=== PATIENT | male | born 1985 | race Caucasian/White ===

== ENCOUNTER 2019-02-11 11:58 | Emergency (ER) | payer BC ==
[2019-02-11 12:55] VITALS: BP 150/100
--- NOTE | 2019-02-11 13:44 | UC ---
Headache HPI - HPI Summary HPI Summary: 33-year-old male comes in with a chief complaint of headache. Headache started 2 weeks ago sudden onset while climaxing during intercourse. Sudden onset primarily a left parietal region but it spread out through the whole head. He' s had a headache ever since then. Pain at its worse is a 10. Has been taking [id number] medications and now his headaches 4 out of 10. Headache it's worse with sexual activity at climax when it's at its worst. Also states he is worried he might pass out when the headache is at its worst. Denies any change in vision or speech or any focal weakness or numbness. He wakes up with the headache but is not sure if the headache wakes him from sleep. Other activity does not seem to make the headache any worse. Patient does have a history of hypertension. He stopped taking his hypertension medicine about 8 months ago. Also reports a history of migraine headaches when he was very young but he does not remember them because it was so long ago. There is a family history of migraines. Has had mild photophobia since the onset of this headache. - History Of Current Complaint Chief Complaint: UCHeadache Stated Complaint: HEADACHES x2 WEEKS Time Seen by Provider: 02/11/19 13:14 Pain Intensity: 4 - Allergies/Home Medications Allergies/Adverse Reactions: Allergies Allergy/AdvReac Type Severity Reaction Status Date / Time No Known Allergies Allergy Verified 02/11/19 13:06 Home Medications: Home Medications NK [No Home Medications Reported] 02/11/19 [History Confirmed 02/11/19] PMH/Surg Hx/FS Hx/Imm Hx Previously Healthy: Yes Cardiovascular History: Hypertension Neurological History: Migraine - Surgical History Surgical History: Yes Surgery Procedure, Year, and Place: vasectomy - Family History Family History: MIGRAINES - Social History Alcohol Use: Occasionally Substance Use Type: Marijuana Smoking Status (MU): Light Every Day Tobacco Smoker Type: Cigarettes Review of Systems All Other Systems Reviewed And Are Negative: Yes Constitutional: Positive: Negative Skin: Positive: Negative Eyes: Positive: Photophobia ENT: Positive: Negative Respiratory: Positive: Negative Cardiovascular: Positive: Negative Gastrointestinal: Positive: Negative Motor: Positive: Negative Neurovascular: Positive: Negative Musculoskeletal: Positive: Negative Neurological: Positive: Headache Psychological: Positive: Negative Is Patient Immunocompromised?: No Physical Exam Triage Information Reviewed: Yes Appearance: Well-Appearing, No Pain Distress, Well-Nourished Vital Signs: Initial Vital Signs Temp 98.3 F 02/11/19 12:44 Pulse 84 02/11/19 12:44 Resp 16 02/11/19 12:44 BP 150/100 02/11/19 12:44 Pulse Ox 99 02/11/19 12:44 Vital Signs Reviewed: Yes Eyes: Positive: Conjunctiva Clear, Other: - perrla/eomi, mild photophobia ENT: Positive: TMs normal Neck: Positive: Supple Respiratory: Positive: Lungs clear, Normal breath sounds, No respiratory distress Cardiovascular: Positive: RRR Musculoskeletal Exam: Normal Musculoskeletal: Positive: Strength Intact, ROM Intact Neurological Exam: Normal Neurological: Positive: Alert, Muscle Tone Normal Psychological Exam: Normal Psychological: Positive: Normal Response To Family, Age Appropriate Behavior Skin Exam: Normal Headache Course/Dx - Course Course Of Treatment: Patient Name: MACKENZIE CHOI Medical Record#: [id number] Ordering Physician: Samm Mccallum MD Acct.#: [id number] : 1985 Age: 33 Sex: M Location: [facility] Exam Date: 02/11/19 1326 ADM Status: REG ER Order Information: CT BRAIN WO Accession Number: [id number] CPT: 73582 Indication: Parietal headache. CT of the brain performed without IV contrast. Intratesticular structures are midline. No midline shift is noted. The extra- axial spaces are unremarkable. There is no evidence of intracranial mass or hemorrhage. No other high or low density lesions identified. Mastoid air cells and paranasal sinuses are unremarkable. IMPRESSION: No intracranial mass or hemorrhage is noted. <Electronically signed by Payton Arora MD in OV> 02/11/[address] results with the patient and his . I discussed the case with neurologist on-call Dr. Caba. CT scan did not show any acute bleed or abnormality. However do to the headache being there for 2 weeks the sensitivity for subarachnoid hemorrhage hemorrhage is low and Dr. Caba recommends an MRI. I discussed this with the patient and his . He plans to go to the [facility] emergency department for further evaluation. I spoke to the physician academic assistant Alejandra at the [facility] emergency department explained the case. - Differential Dx/Diagnosis Provider Diagnosis: Headache Discharge - Sign-Out/Discharge Documenting (check all that apply): Patient Departure All imaging exams completed and their final reports reviewed: Yes - Discharge Plan Condition: Stable Disposition: HOME-RECOMMEND TO ED Patient Education Materials: Acute Headache (ED) Referrals: Geronimo Caba MD [Medical Doctor] - Additional Instructions: GO DIRECTLY TO THE EMERGENCY DEPARTMENT FOR FURTHER EVALUATION. I HAVE DISCUSSED YOUR CASE WITH THE NEUROLOGIST PBX INSTALLER, DR CABA, WHO RECOMMENDS A BRAIN MRI. - Billing Disposition and Condition Condition: STABLE Disposition: Home-Recommend to ED
== END 2019-02-11 14:47 | disposition home health service (06) ==
LOC: UCCORT 11:58
DX: R51 Headache (principal); I10 Essential (primary) hypertension; F17.210 Nicotine dependence, cigarettes, uncomplicated
CPT/HCPCS: 70450; 99202; G0463

== ENCOUNTER 2019-02-11 16:05 | Emergency (ER) | payer BC ==
[2019-02-11 16:27] LABS: ABS Basophils 0.1 10^3/ul (0-0.2); ABS Eosinophils 0.2 10^3/ul (0-0.6); ABS Lymphocytes 1.8 10^3/ul (1.0-4.8); ABS Monocytes 0.9 10^3/ul (0-0.8); ABS Neutrophils 5.4 10^3/ul (1.5-7.7); ABS Nucleated RBC 0 10^3/ul; Hematocrit 46 % (36-46); Hemoglobin 15.9 g/dL (14.0-18.0); Lymphocyte % 21.1 %; Mean Corpuscular HGB Conc 35 g/dL (31-36); Mean Corpuscular Hemoglobin 31 pg (27-31); Mean Corpuscular Volume 89 fL (80-94); Mean Platelet Volume 7.9 fL (7.4-10.4); Nucleated Red Blood Cells % 0.1; Platelet Count 312 10^3/uL (150-450); Red Blood Count 5.17 10^6 /uL (4.18-5.48); Red Cell Distribution Width 14 % (10.5-15); White Blood Count 8.3 10^3/uL (3.5-10.8)
[2019-02-11 16:44] LABS: Albumin 4.8 g/dL (3.2-5.2); Albumin/Globulin Ratio 1.4 (1-3); BUN/Creatinine Ratio 14.5 (8-20); C Reactive Protein 4.51 mg/L (<8.01); Calcium 10.1 mg/dL (8.6-10.3); EGFR African American 92.2 (>60); EGFR Non-African American 76.2 (>60); Globulin 3.4 g/dL (2-4); Potassium 4.1 mmol/L (3.5-5.0); Total Bilirubin 0.5 mg/dL (0.2-1.0); Total Protein 8.2 g/dL (6.4-8.9)
[2019-02-11] MEDS ORDERED: Iohexol 350* (CONTRAST) 500 ML MDV IV ONE (17:08)
--- NOTE | 2019-02-11 17:39 | ED ---
Headache - HPI Summary HPI Summary: Pt is a 33 y/o male who presents to the ED c/o headache. He was sent here from the for further evaluation and a possible MRI. A brain CT done there was negative. 2 weeks ago he was having intercourse and suddenly had a headache with climax. Head is located in the left parietal region. A few days later he was again having intercourse and gradually started to have a headache. Upon climax, the headache became severe and was rated a 10/10 in severity. During these episodes, pt c/o mild dizziness, near-syncope, and nausea. Pt currently reports a mild headache with photophobia rated a 3/10 in severity, and has been taking OTC medications today. He denies any memory loss, neck pain, blurry vision, diplopia, off-balance, or vomiting. As per medical records pt has HTN and stopped taking his medications 8 months ago. FHx stroke and migraine. Pt reports intermittent erectile dysfunction. He denies taking any Viagra, testosterone supplements, or herbal supplements. - History Of Current Complaint Chief Complaint: EDHeadache Stated Complaint: HEADACHES FOR ABOUT 2WEEKS, SENT FROM [facility] PER PT Time Seen by Provider: 02/11/19 17:15 Hx Obtained From: Patient Onset/Duration: Sudden Onset, Started weeks ago - 2, Still Present Initially Headache Was: Severe - 10/10 Currently Pain Is: Mild - 3/10 Timing: Intermittent, Lasting: Location of Headache: Parietal - left Aggravating Factor: Other - intercourse Allevating Factors: Medication - OTC Associated Signs And Symptoms: Dizziness, Nausea - Allergies/Home Medications Allergies/Adverse Reactions: Allergies Allergy/AdvReac Type Severity Reaction Status Date / Time No Known Allergies Allergy Verified 02/11/19 13:06 PMH/Surg Hx/FS Hx/Imm Hx Endocrine/Hematology History: Denies: Hx Diabetes Cardiovascular History: Reports: Hx Hypertension - Surgical History Surgery Procedure, Year, and Place: vasectomy Infectious Disease History: No Infectious Disease History: Denies: Traveled Outside the [place] in Last 30 Days - Family History Known Family History: Positive: Cardiac Disease - CHF, cardiac stents, Other - migraines, stroke - Social History Alcohol Use: Occasionally Hx Substance Use: Yes Substance Use Type: Reports: Marijuana Hx Tobacco Use: Yes Smoking Status (MU): Light Every Day Tobacco Smoker Type: Cigarettes Review of Systems Positive: Photophobia. Negative: Blurred Vision, Diplopia Positive: Nausea. Negative: Vomiting Negative: Myalgia - neck Neurological: Other - dizziness, NEGATIVE: off-balance, memory loss Positive: Headache, Syncope - near All Other Systems Reviewed And Are Negative: Yes Physical Exam - Summary Physical Exam Summary: Appearance: well appearing, no pain distress Skin: warm, dry, reflects adequate perfusion Head/face: normal, no temporal artery tenderness Eyes: EOMI, LASHELL, globes soft ENT: mucous membranes moist, ears normal Neck: supple, non-tender, no meningismus Respiratory: CTA, breath sounds present Cardiovascular: RRR, pulses symmetrical Abdomen: non-tender, soft Bowel Sounds: present Musculoskeletal: normal, strength/ROM intact Neuro: normal, sensory motor intact, A&Ox3 Triage Information Reviewed: Yes Vital Signs On Initial Exam: Initial Vitals Temp Pulse Resp BP Pulse Ox 98.9 F 98 17 158/111 97 02/11/19 16:13 02/11/19 16:13 02/11/19 16:13 02/11/19 16:13 02/11/19 16:13 Vital Signs Reviewed: Yes - [place] Coma Scale Best Eye Response: 4 - Spontaneous Best Motor Response: 6 - Obeys Commands Best Verbal Response: 5 - Oriented Coma Scale Total: 15 Diagnostics - Vital Signs Vital Signs Temp Pulse Resp BP Pulse Ox 02/11/19 16:13 98.9 F 98 17 158/111 97 - Laboratory Lab Results: Lab Results 02/11/19 02/11/19 Range/Units 16:20 16:20 WBC 8.3 (3.5-10.8) 10^3/uL RBC 5.17 (4.18-5.48) 10^6 /uL Hgb 15.9 (14.0-18.0) g/dL Hct 46 (36-46) % MCV 89 (80-94) fL MCH 31 (27-31) pg MCHC 35 (31-36) g/dL RDW 14 (10.5-15) % Plt Count 312 (150-450) 10^3/uL MPV 7.9 (7.4-10.4) fL Neut % (Auto) 65.5 % Lymph % (Auto) 21.1 % [place] % (Auto) 10.8 % Eos % (Auto) 2.0 % Baso % (Auto) 0.6 % Absolute Neuts (auto) 5.4 (1.5-7.7) 10^3/ul Absolute Lymphs (auto) 1.8 (1.0-4.8) 10^3/ul Absolute Monos (auto) 0.9 H (0-0.8) 10^3/ul Absolute Eos (auto) 0.2 (0-0.6) 10^3/ul Absolute Basos (auto) 0.1 (0-0.2) 10^3/ul Absolute Nucleated RBC 0 10^3/ul Nucleated RBC % 0.1 ESR Pending Sodium 139 (135-145) mmol/L Potassium 4.1 (3.5-5.0) mmol/L Chloride 103 (101-111) mmol/L Carbon Dioxide 28 (22-32) mmol/L Anion Gap 8 (2-11) mmol/L BUN 16 (6-24) mg/dL Creatinine 1.10 (0.67-1.17) mg/dL Est GFR ( Amer) 92.2 (>60) Est GFR (Non-Af Amer) 76.2 (>60) BUN/Creatinine Ratio 14.5 (8-20) Glucose 94 (70-100) mg/dL Calcium 10.1 (8.6-10.3) mg/dL Total Bilirubin 0.50 (0.2-1.0) mg/dL AST 27 (13-39) U/L ALT 36 (7-52) U/L Alkaline Phosphatase 81 (34-104) U/L C-Reactive Protein 4.51 (<8.01) mg/L Total Protein 8.2 (6.4-8.9) g/dL Albumin 4.8 (3.2-5.2) g/dL Globulin 3.4 (2-4) g/dL Albumin/Globulin Ratio 1.4 (1-3) Result Diagrams: 02/11/19 16:20 02/11/19 16:20 Lab Statement: Any lab studies that have been ordered have been reviewed, and results considered in the medical decision making process. - CT CT Angiogram brain CT Interpretation Completed By: Radiologist - No acute vascular pathology Headache Course/Dx - Course Course Of Treatment: Nurse's notes reviewed. The patient had significant hypertension has been having intermittent headaches during intercourse. This may be as result of his uncontrolled hypertension. A CT done just prior to arrival at urgent care was negative and he was referred here for advanced imaging. A CT angiogram versus MRI was discussed with the neurologist Dr. Brunner. He suggested the CT angiogram could be done. This was performed and found to be negative for any acute pathology. Patient's blood pressure was treated as he has been off his medications for several weeks now since moving to the area. He will follow-up with the [facility] for monitoring of his blood pressure and reevaluation of his headaches. He was also given primary care referral in the area. - Diagnoses Differential Diagnosis/HQI/PQRI: Migraine, Subarachnoid Hemorrhage, Other - Aneurysm, subarachnoid, blood pressure associated headache Provider Diagnoses: Hypertension, Non compliance w medication regimen, Headache Discharge - Sign-Out/Discharge Documenting (check all that apply): Patient Departure - Discharge Patient Received Moderate/Deep Sedation with Procedure: No - Discharge Plan Condition: Improved Disposition: HOME Prescriptions: Amlodipine Besylate [Norvasc] 10 mg PO DAILY #30 tablet Atorvastatin* [Lipitor 40 MG*] 40 mg PO DAILY #30 tab Hydrochlorothiazide TAB* [Hydrodiuril TAB*] 50 mg PO DAILY #30 tab Promethazine TAB* [Phenergan Tab*] 25 mg PO Q8H PRN #20 tab PRN Reason: Headache Patient Education Materials: Acute Headache (ED), Chronic Hypertension (ED), Low-Sodium Diet (ED) Referrals: [facility] [Outside] [facility] [Outside] Additional Instructions: Call morning to schedule prompt follow-up with the [facility]. They generally can see in the next 1-2 days. If you need to have follow-up MRI scan this can be accomplished. Low salt diet. Take prescribed medications daily. Return with severe headache, numbness/weakness, visual changes, new symptoms or other concerns. - Billing Disposition and Condition Condition: IMPROVED Disposition: Home - Attestation Statements Document Initiated by Lauriee: Yes Documenting Scribe: Renetta Thompson Provider For Whom Che is Documenting (Include Credential): Edgar Torres MD Scribe Attestation: Renetta Moe scribed for Edgar Torres MD on 02/11/19 at 1835. Scribe Documentation Reviewed: Yes Provider Attestation: The documentation as recorded by the Renetta mccord Azari accurately reflects the service I personally performed and the decisions made by me, Edgar Torres MD Status of Scribe Document: Viewed
[2019-02-11 17:49] LABS: Erythrocyte Sed Rate 3 mm/Hr (0-14)
[2019-02-11] MEDS ORDERED: amLODIPine TAB* 5 MG PO ONE (18:16)
[2019-02-11] MEDS ORDERED: Hydrochlorothiazide TAB* 50 MG PO ONE (18:16)
[2019-02-11 19:47] VITALS: BP 135/86
== END 2019-02-11 19:51 | disposition home or self-care (01) ==
LOC: ED 16:05
DX: I10 Essential (primary) hypertension (principal); R51 Headache; R11.0 Nausea; H53.149 Visual discomfort, unspecified; F17.210 Nicotine dependence, cigarettes, uncomplicated; R55 Syncope and collapse; R42 Dizziness and giddiness; Z91.14 Patient's other noncompliance with medication regimen
CPT/HCPCS: 36415; 70496; 80053; 85025; 85652; 86140; 99283; A9270-GY; Q9967